=== PATIENT | male | born 1930 | race Caucasian/White ===

== ENCOUNTER 2016-08-31 19:30 | Outpatient (CLI) | payer MEDICARE | END 2016-08-31 19:31 | DX: G20 Parkinson's disease (principal); J18.9 Pneumonia, unspecified organism; I10 Essential (primary) hypertension ==

== ENCOUNTER 2016-09-01 08:00 | Outpatient (CLI) | payer MEDICARE | END 2016-09-01 23:59 | disposition home or self-care (01) | DX: J11.1 Influenza due to unidentified influenza virus with other respiratory manifestations (principal); N39.0 Urinary tract infection, site not specified ==

== ENCOUNTER 2016-09-28 04:50 | Outpatient (CLI) | payer MEDICARE | END 2016-09-28 23:59 | DX: N39.0 Urinary tract infection, site not specified (principal) ==